=== PATIENT | male | born 1990 | race Asian ===

== ENCOUNTER 2020-09-23 11:40 | Emergency (ER) | payer OTHER, BC ==
[2020-09-23 11:53] VITALS: BP 129/72; PULSE 67; TEMP 98; BMI 34.3
[2020-09-23] MEDS ORDERED: EMTRICITABINE 200MG/TENOFOVIR 300MG PO ONE (11:53)
[2020-09-23] MEDS ORDERED: RALTEGRAVIR POTASSIUM 400 MG TAB PO ONE (11:53)
[2020-09-23] MEDS ORDERED: DIPHTH,PERTUSS(ACELL),TET 0.5 ML DISP.SYRIN IM ONE ×2 (11:54→12:07)
[2020-09-23] MEDS ORDERED: HIV POST EXPOSURE PROPHYLAXIS KIT PO ONE (12:08)
[2020-09-23 12:29] LABS: BASO % 0.5 % (0-2.0); EOS % 3.6 % (0-4.5); HEMATOCRIT 38.6 % (35.4-49); HEMOGLOBIN 12.1 GM/dL (11.7-16.9); LYMPH % 47.9 % (8-40); MCH 18.4 pg (25.7-33.7); MCHC 31.5 g/dl (32.0-35.9); MEAN CELL VOLUME 58.5 fl (80-96); MEAN PLT VOLUME 9.2 fl (7.5-11.1); MONO % 5.8 % (3.8-10.2); NEUT % 42.2 % (42.8-82.8); PLATELET COUNT 224 K/MM3 (134-434); RDW 15.9 % (11.9-15.9)
[2020-09-23 12:53] LABS: ALBUMIN 4.4 g/dl (3.4-5.0); CALCIUM 9.5 mg/dL (8.5-10.1)
[2020-09-23 12:56] LABS: URIC ACID 7.4 mg/dL (2.6-7.2)
[2020-09-23 12:57] LABS: CREATININE 0.9 mg/dL (0.55-1.3)
[2020-09-23 12:58] LABS: TOT PROT 8.1 g/dl (6.4-8.2)
[2020-09-23 12:59] LABS: BILIRUBIN,TOTAL 0.7 mg/dL (0.2-1)
[2020-09-23 13:47] LABS: HIV INTERPRETATION NEGATIVE (NEGATIVE)
[2020-09-23 14:18] LABS: ANISOCYTOSIS 2+; MACROCYTOSIS 0; PLATELET ESTIMATE NORMAL
== END 2020-09-23 12:14 | disposition home or self-care (01) ==
LOC: JERFT 11:40
PROC: 3E0234Z Introduction of Serum, Toxoid and Vaccine into Muscle, Percutaneous Approach (ICD-10-PCS; principal; 2020-09-23)
DX: Z77.21 Contact with and (suspected) exposure to potentially hazardous body fluids (principal)
CPT/HCPCS: 36415; 80053; 82465; 82977; 83036; 83615; 84100; 84478; 84550; 85025; 86317; 86704; 86706; 86803; 87340; 87389; 90715; 99284-25